=== PATIENT | female | born 1985 | race Caucasian/White ===

== ENCOUNTER 2017-11-28 14:26 | Outpatient (CLI) | END 2017-11-28 17:45 | disposition home or self-care (01) ==

== ENCOUNTER 2017-12-09 21:30 | Inpatient (IN) | END 2017-12-12 19:25 | disposition home or self-care (01) | DRG 775 ==

== ENCOUNTER 2019-02-10 07:50 | Day surgery (SDC) | payer BC ==
[2019-02-10] VITALS (19 sets, daily range): BP systolic 90–113; BP diastolic 58–78; PULSE 66–84; RESP 13–21; Ht 154.9 cm; Wt 90.3 kg
[~2019-02-10] VITALS: Ht 154.9 cm; Wt 90.3 kg
[~2019-02-10 07:50] MED LIST: FERR-55 PO
[2019-02-10] MEDS ORDERED: POLYMYXIN/BACITRACIN 1L IRRIG ONE (08:27)
[2019-02-10] MEDS ORDERED: BUPIVACAINE 0.25% (MPF) 30 ML INJ ONE (08:27)
[2019-02-10] MEDS ORDERED: CEFAZOLIN 2 GM/50 ML (PMX) 50 ML IVPB ONE (08:30)
[2019-02-10] MEDS ORDERED: ACETAMINOPHEN 500 MG TAB PO ONE (08:30)
[2019-02-10] MEDS ORDERED: SOD CHLORIDE 0.9% 1,000 ML IV SCH (08:30)
[2019-02-10] MEDS ORDERED: ONDANSETRON 4 MG INJ ONE (08:47)
[2019-02-10] MEDS ORDERED: LIDOCAINE 2% (SDV) 5 ML INJ ONE (08:47)
[2019-02-10] MEDS ORDERED: CEFAZOLIN 1 GM INJ ONE (08:47)
[2019-02-10] MEDS ORDERED: PROPOFOL 40 ML ONE (08:47)
[2019-02-10] MEDS ORDERED: MIDAZOLAM 1 MG/ML 2 ML INJ ONE (08:47)
[2019-02-10] MEDS ORDERED: FENTAnyl 50 MCG/ML VIAL ONE (08:47)
[2019-02-10] MEDS ORDERED: ROCURONIUM 50 MG INJ ONE (08:47)
[2019-02-10] MEDS ORDERED: KETOROLAC 15 MG INJ IV PRN (09:00)
[2019-02-10] MEDS ORDERED: morphine 2 MG INJ IV PRN ×2 (09:00)
[2019-02-10] MEDS ORDERED: ROPIVACAINE 0.5 % 30 ML VIAL ONE (09:00)
[2019-02-10] MEDS ORDERED: DIPHENHYDRAMINE 50 MG INJ IV PRN (09:00)
[2019-02-10] MEDS ORDERED: ALBUTEROL 0.083% (NEB) 2.5 MG/3 ML AMP HHN PRN (09:00)
[2019-02-10] MEDS ORDERED: FENTAnyl 50 MCG/ML VIAL IV PRN ×2 (09:00)
[2019-02-10] MEDS ORDERED: HYDROmorphONE 1 MG/5 ML IV SYRINGE IV PRN ×3 (09:00)
[2019-02-10] MEDS ORDERED: ATROPINE 1 MG/10 ML SYRINGE IV PRN (09:00)
[2019-02-10] MEDS ORDERED: EPHEDrine 25 MG/5 ML SYG IV PRN (09:00)
[2019-02-10] MEDS ORDERED: LEVALBUTEROL (NEB) 0.63 MG/3 ML AMP HHN PRN (09:00)
[2019-02-10] MEDS ORDERED: hydrALAzine 20 MG INJ IV PRN (09:00)
[2019-02-10] MEDS ORDERED: OXYCODONE/ACETAMINOPHEN (5/325) TAB PO PRN ×2 (09:00)
[2019-02-10] MEDS ORDERED: LABETALOL HCL 20MG INJ IV PRN (09:00)
[2019-02-10] MEDS ORDERED: ONDANSETRON 4 MG INJ IV PRN (09:00)
[2019-02-10] MEDS ORDERED: FAMOTIDINE 20 MG INJ ONE (09:11)
[2019-02-10] MEDS ORDERED: SUGAMMADEX SODIUM 200 MG/2 ML VIAL IV ONE (09:30)
[2019-02-10] MEDS ORDERED: KETOROLAC 30 MG INJ ONE (09:37)
[2019-02-10] MEDS ORDERED: HYDROCODONE/APAP (5/325) TAB PO ONE (10:00)
== END 2019-02-10 13:15 | disposition home or self-care (01) ==
LOC: SDS 07:50
PROVIDERS: ATTEND Surgery
DX: K43.2 Incisional hernia without obstruction or gangrene (principal); Z87.891 Personal history of nicotine dependence
CPT/HCPCS: 49655; J0690; J1170; J1885; J2250; J2405; J2795; J3010; J7030; Z7512; Z7610